=== PATIENT | male | born 1990 | race Two or more races ===

== ENCOUNTER 2019-05-23 18:40 | Emergency (ER) | payer OTHER ==
[~2019-05-23] VITALS: Ht 175.3 cm; Wt 78.9 kg
[2019-05-23 18:58] VITALS: BP 120/82
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
--- NOTE | 2019-05-23 19:42 | NUR ---
ED Nurse Note: Pt taken for Xray.
--- NOTE | 2019-05-23 20:03 | NUR ---
ED Nurse Note: Pt came back from xray.
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
--- NOTE | 2019-05-23 21:37 | Diagnostic Imaging Report ---
INDICATION: Back pain TECHNIQUE: XRAY L Spine Ltd, XRAY T Spine 2v Multiple views of the lumbosacral and thoracic spine were obtained COMPARISON: None FINDINGS: Alignment is anatomic. There are 5 lumbar type vertebral bodies. Status post L3-L5 posterior elements decompression. There is no acute fracture or listhesis. Joint spaces are maintained. No acute soft tissue abnormality. Visualized lungs are clear. IMPRESSION: No acute fracture or malalignment. These findings are concordant with the [facility] preliminary report.
[2019-05-23] MEDS ORDERED: ROBAXIN-750750 MG PO (21:45)
[2019-05-23] MEDS ORDERED: LIDODERM700 M1 TOPIC (21:45)
[2019-05-23] MEDS ORDERED: TYLENOL EXTRA500 MG ORAL (21:45)
[2019-05-23 21:57] VITALS: BP 120/82
--- NOTE | 2019-05-23 21:57 | NUR ---
ED Nurse Note: Pt cleared by ERMD for discharge. DC instructions/prescription was given and explained to pt and verbalized understanding of teachings. All medical deviecs such as ID band removed. Pt is AAO x4, ambulatory and left with all personal belongings.
== END 2019-05-23 21:57 | disposition home or self-care (01) ==
LOC: EMR 19:40
DX: M54.5 Low back pain (principal); R51 Headache; T14.8XXA Other injury of unspecified body region, initial encounter; Z79.01 Long term (current) use of anticoagulants; V43.62XA Car passenger injured in collision with other type car in traffic accident, initial encounter; Y92.410 Unspecified street and highway as the place of occurrence of the external cause
CPT/HCPCS: 72020; 72070; 99284